=== PATIENT | female | born 1945 | race Caucasian/White ===

== ENCOUNTER 2017-05-28 12:30 | Inpatient (IN) | payer MEDICARE, BC ==
[2017-05-28 12:59] VITALS: BMI 25.4
[2017-06-04] MEDS ORDERED: CEFAZOLIN/Water 2 GM/20 ML SYRINGE ONE (06:18)
[2017-06-04] MEDS ORDERED: Tranexamic Acid 1,000 MG/100 ML BAG ONE ×2 (06:18→09:05)
[2017-06-04] MEDS ORDERED: Midazolam HCl 2 mg/2 ml Vial ONE ×2 (06:25→06:59)
[2017-06-04] MEDS ORDERED: Fentanyl 100 MCG/2 ML VIAL ONE ×2 (06:25→06:59)
[2017-06-04] MEDS ORDERED: Ropivacaine 0.2% HCl/PF 20 ML ONE (06:26)
[2017-06-04] MEDS ORDERED: Lidocaine 1% (PF) 30 ML VIAL ONE (06:26)
[2017-06-04] MEDS ORDERED: Ropivacaine HCl/PF 250 ML in Premix Bag 1 BAG NERVE BLCK SCH (07:20)
[2017-06-04] MEDS ORDERED: Ondansetron HCl/PF 4 MG/2 ML Vial IVP PRN ×3 (07:20→09:00)
[2017-06-04] MEDS ORDERED: Promethazine HCl 25 MG/ML VIAL IM PRN ×3 (07:20→09:00)
[2017-06-04] MEDS ORDERED: Zolpidem Tartrate 5 MG TAB PO PRN ×2 (07:20→08:48)
[2017-06-04] MEDS ORDERED: traMADol HCl 50 MG TAB PO PRN ×3 (07:20→08:48)
[2017-06-04] MEDS ORDERED: HYDROcodone/Acetaminophen 5/325 mg Tablet PO PRN (07:20)
[2017-06-04] MEDS ORDERED: Fentanyl 100 MCG/2 ML VIAL IV PRN (07:21)
[2017-06-04] MEDS ORDERED: Fentanyl 100 MCG/2 ML VIAL SLOW IVP PRN (08:48)
[2017-06-04] MEDS ORDERED: Acetaminophen 325 MG TAB PO PRN (08:48)
[2017-06-04] MEDS ORDERED: diphenhydrAMINE 25 MG CAP PO PRN (08:48)
[2017-06-04] MEDS ORDERED: HYDROcodone/Acetaminophen 10/325 mg Tablet PO PRN ×2 (08:48)
[2017-06-04] MEDS ORDERED: [UNRECOGNIZED DRUG - OTHER] PO SCH (09:00)
[2017-06-04] MEDS ORDERED: TERIPARATIDE SC SCH (09:00)
[2017-06-04] MEDS ORDERED: Tranexamic Acid 1,000 MG in Sodium Chloride 0.9% 100 ML IVPB SCH (09:00)
[2017-06-04] MEDS ORDERED: CEFAZOLIN/Water 2 GM/20 ML SYRINGE SLOW IVP SCH (09:00)
[2017-06-04] MEDS ORDERED: Promethazine HCl 25 MG/ML VIAL SLOW IVP PRN (09:00)
--- NOTE | 2017-06-04 09:04 | OP ---
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 POSTOPERATIVE DIAGNOSES: End-stage tricompartmental osteoarthritis and degenerative genu valgum, rig ht knee. OPERATIVE PROCEDURE: Cemented cruciate-sparing computer-assisted navigated right total knee arthropl geni. SURGEON: Alphonse Torre M.D. HAND BOOKED FOLDER AND STITCHER: Anselmo Ashraf PA-C. ANESTHESIA: General via laryngeal mask airway augmented with indwelling adductor canal block and a s simin shot sciatic block. TOURNIQUET TIME: 51 minutes at 300 mmHg. COMPONENTS USED: [employer] Triathlon size 4, cemented cruciate-sparing femoral component, size 3 cemented primary tibial baseplate, 9 mm polyethylene fixed bearing insert, A29 patellar button . DRAINS: None. SPECIMENS: None. COMPLICATIONS: None. COUNTS: Correct. FINDINGS: End-stage severe degenerative tricompartmental disease, bone on bone arthritis, periarticu lar osteophyte formation, large serous effusion, hypertrophic synovium, and changes consistent with d egenerative genu valgum. INDICATIONS FOR SURGERY: Bonifacio is a 71-year-old white female who has had progressive right knee pain amplified with standing and walking for the last 5-7 years. She has failed conservative management and elected to proceed with total knee arthroplasty to treat her pain. PROCEDURE IN DETAIL: After informed consent was obtained in the preoperative holding area. The susan ent was taken to the operative suite where general anesthesia was induced. Once adequate level of ge neral anesthesia was obtained, the patient was positioned and a well-padded tourniquet was placed smitha und the right proximal thigh. The right lower extremity was then prepped and draped in the usual irma rile fashion. Prior to exsanguination, a time out was called and all members of the surgical team ag jeanie upon site, surgeon, and patient. The extremity was then exsanguinated and the tourniquet was ra ised. A midline longitudinal incision was then made directly over the patella extending two fingerbr eadths above the superior pole of the patella and two fingerbreadths inferior to the inferior patella r pole of the patella. Deeper subcutaneous layers were dissected sharply and local bleeding was cont rolled with Bovie electrocautery. A quad tendon longitudinal split was then made sharply and a media n parapatellar arthrotomy was carried out both sharp and with Bovie electrocautery, carried down to o ne fingerbreadth medial to the tibial tubercle. The knee was then placed into flexion and the patell a was everted nicely, and a copious fat pad ectomy was performed allowing for greater exposure of the tibia. The computer-assisted distal femoral fiducial was then placed and pinned firmly, and the dis wilton femoral cutting guide was pinned firmly into place. The oscillating saw was then used to remove the appropriate amount of bone. The 4-in-1 cutting block was then placed on the distal femur and the oscillating saw was used to remove the appropriate amount of bone off of the anterior, posterior, an d chamfer cuts. After completion of the chamfer cuts, the box-cutting guide was placed, malleted fir mly into place and pinned securely, and an osteotome was used to make the distal cut and the oscillat ing saw was then used to make the medial and lateral box cuts. This came out quite nicely and was re moved with Bovie electrocautery, and the oscillating saw was then used to broaden the lateral medial arita of the box cut. After completion of bone cuts, the anterior cruciate ligament was resected sha rply and the posterior cruciate ligament retractor was placed and the tibia was subluxed for better e xposure. Partial meniscectomies were carried out, and the tibial computer-assisted fiducial was pinn ed, and the cutting guide was placed. Oscillating saw was then used to remove the bone with Hohmann retractors used to take care and protect the collateral ligaments. After the tibial resection was pe rformed, a laminar transcribing operators supervisor was placed in between the freshened bone cuts. The knee placed at 90 deg brandy and further bilateral meniscectomies were carried out, and the curved osteotome and curettage wa s used to remove any excess bone spurs in the posterior compartment. The trial femoral component, ti bial baseplate were placed with the appropriate polyethylene trial insert with an appropriate polyeth ylene spacer and patellar button. The knee was taken through full range of motion with flexion and e xtension from 0-90 degrees and patellar broach squarely in the trochlea without any squinting or sub luxation noted. The knee was also stable to varus and valgus stressing at 0, 15, 45, and 90 degrees of flexion. The drawer was negative. All trial components were then removed and the keel punch was u sed to provide the appropriate defect in the tibia with a mallet. The freshened bone cuts were copio usly irrigated with pulsatile lavage of about 1-1/2 liters to remove all excess debris. The freshene d bone cuts were then dried and with suction and lap sponge. The knee was placed in flexion and retr actors were placed to provide access to all bone cuts. Tobramycin impregnated methyl methacrylate ce ment was then placed on the freshened bone cuts and implants which were malleted firmly into place. Curettage and [place] elevators were used to remove any excess bone cement. The knee was placed into f ull extension and the patellar button was placed under compression, and the cement was allowed to cur e. Once completed, the components were again taken through full range of motion and copious irrigati on of the knee was carried out with another liter of normal saline. All components were inspected fu lly with full range of motion and varus and valgus stressing. There was no laxity noted and full exte nsion was observed clinically. Primary closure was accomplished with #2 interrupted Vicryl stitch of the arthrotomy defect. This was oversewn with a #2 running Quill barbed stitch. The subcutaneous l carlyle was then closed with a running 0 barbed Monocryl stitch and skin closure accomplished with a run almas subcuticular 3-0 Monocryl barbed Quill stitch and augmented with cement on the skin. Tourniquet was lowered. Good spontaneous return of distal pulses was noted clinically and a sterile dressing w as applied to the incision. The procedure was terminated without any complications. The patient was awakened in the operative suite and taken to the recovery room in stable condition.
[2017-06-04] MEDS ORDERED: Ketorolac Tromethamine 30 MG/ML VIAL ONE (09:09)
[2017-06-04] MEDS ORDERED: Bupivacaine 0.5% 10 ML VIAL ONE (09:35)
--- NOTE | 2017-06-04 10:06 | RAD ---
RADIOGRAPH RIGHT KNEE TWO VIEWS: Date: 06-04-2017 History: 71-year-old female with osteoarthritis of the right knee. FINDINGS: Resurfacing changes of the posterior aspect of the patella. Metallic prostheses cover the resurfaced tibial plateau and femoral condyles. Soft tissue gas, fluid in the joint spaces, and soft tissue claudia a, indicate very recent post-operative status. IMPRESSION: Immediately status post total right knee replacement arthroplasty. POS: [facility]
[2017-06-04] MEDS: Aspirin 325 MG TAB PO SCH ×2 (12:08→21:07)
[2017-06-04] MEDS: Ketorolac Tromethamine 30 MG/ML VIAL IVP SCH ×3 (13:52→23:53)
--- NOTE | 2017-06-04 13:53 | PDOC.PN ---
- Subjective Encounter Start Date: 06/04/17 Encounter Start Time: 13:52 Pt seen for management of medical comorbidities, including dyslipidemia. Denies chest pain or shortness of breath. Reports R knee pain. - Objective Vital Signs & Weight: Weight Weight 148 lb Phys Exam - Physical Examination Constitutional: NAD HEENT: moist MMs Neck: supple Respiratory: clear to auscultation bilateral Cardiovascular: RRR Gastrointestinal: soft Musculoskeletal: pulses present s/p R knee surgery Neurological: moves all 4 limbs Psychiatric: normal affect Dx/Plan (1) Dyslipidemia Code(s): E78.5 - HYPERLIPIDEMIA, UNSPECIFIED Status: Chronic (2) Osteoporosis Code(s): M81.0 - AGE-RELATED OSTEOPOROSIS W/O CURRENT PATHOLOGICAL FRACTURE Status: Chronic (3) Glaucoma Code(s): H40.9 - UNSPECIFIED GLAUCOMA Status: Chronic (4) Arthritis Code(s): M19.90 - UNSPECIFIED OSTEOARTHRITIS, UNSPECIFIED SITE Status: Chronic - Plan PT/OT, out of bed/ambulate * . Continue statin. Continue Lumigan eye drops. Continue calcium supplements and osteoporosis medications. PRN IV hydralazine for BP spikes. s/p R knee surgery. DVT prophylaxis and pain management per orthopedic surgery service. Review of Systems - Review of Systems Respiratory: negative: Cough, Dry, Shortness of Breath, Hemoptysis, SOB with Excertion, Pleuritic Pain, Sputum, Wheezing Cardiovascular: negative: chest pain, palpitations, orthopnea, paroxysmal nocturnal dyspnea, edema, light headedness - Medications/Allergies Allergies/Adverse Reactions: Allergies Allergy/AdvReac Type Severity Reaction Status Date / Time No Known Allergies Allergy Verified 05/28/17 12:53 Medications: Current Medications Acetaminophen (Tylenol) 650 mg PO Q4H PRN PRN Reason: SINGLETON/ T > 101F; Mild Pain (1-3) Hydrocodone Bitart/Acetaminophen ([place] 5/325) 1 tab PO Q4H PRN PRN Reason: Mild Pain (1-3) Hydrocodone Bitart/Acetaminophen ([place] 5/325) 2 tab PO Q4H PRN PRN Reason: For Moderate Pain 4-6 Hydrocodone Bitart/Acetaminophen ([place] 10/325) 1 tab PO Q4H PRN PRN Reason: Moderate Pain (4-6) Hydrocodone Bitart/Acetaminophen ([place] 10/325) 2 tab PO Q4H PRN PRN Reason: Severe Pain (7-10) Aspirin (Aspirin) 325 mg PO BID [facility] Last Admin: 06/04/17 12:08 Dose: Not Given Bupropion HCl (Wellbutrin Sr) 150 mg PO QAM [facility] Calcium/Vitamin D (Caltrate 600 + Vit D) 1 tab PO DAILY [facility] Cefazolin Sodium (Ancef) 2 gm SLOW IVP Q8HR [facility] Stop: 06/04/17 22:01 Cholecalciferol (Vitamin D3) 2,000 units PO DAILY [facility] Diphenhydramine HCl (Benadryl) 25 mg PO Q6H PRN PRN Reason: Itching Duloxetine HCl (Cymbalta) 60 mg PO HS [facility] Fentanyl (Sublimaze) 50 mcg IV Q1H PRN PRN Reason: BT PAIN Last Admin: 06/04/17 10:36 Dose: 50 mcg Fentanyl (Sublimaze) 100 mcg SLOW IVP Q1H PRN PRN Reason: Severe Pain (7-10) Ferrous Gluconate (Fergon) 324 mg PO BID [facility] Ropivacaine 250 ml/ Device 250 mls @ 0 mls/hr NERVE BLCK INF [facility] PRN Reason: As Directed Dextrose/Sodium Chloride (D5 1/2 Ns) 1,000 mls @ 100 mls/hr IV .Q10H [facility] Tranexamic Acid 1,000 mg/ (Sodium Chloride) 110 mls @ 200 mls/hr IVPB ONE [facility] Stop: 06/04/17 15:00 Iron/Minerals/Multivitamins (Theragran M) 1 tab PO DAILY [facility] Ketorolac Tromethamine (Toradol) 15 mg IVP Q6HR [facility] Stop: 06/06/17 06:01 Latanoprost (Xalatan 0.005% [facility] Sol) 1 drop EA EYE HS [facility] Ondansetron HCl (Zofran) 4 mg IVP Q6H PRN PRN Reason: Nausea/Vomiting [Biotin] 5 Mg Hm Med 0 each PO DAILY [facility] [Forteo] 600 Mcg) Hm (Med) 0 each SC DAILY [facility] Promethazine HCl (Phenergan) 12.5 mg IM Q4H PRN PRN Reason: Nausea Promethazine HCl (Phenergan) 12.5 mg IM Q4H PRN PRN Reason: Nausea/Vomiting Senna/Docusate Sodium (Senokot S) 2 tab PO BID [facility] Simvastatin (Zocor) 20 mg PO HS [facility] Sodium Chloride (Flush - Normal Saline) 10 ml IVF PRN PRN PRN Reason: Saline Flush Tramadol HCl (Ultram) 100 mg PO Q6H PRN PRN Reason: Mild Pain (1-3) Trazodone HCl (Desyrel) 50 mg PO HS [facility] Zolpidem Tartrate (Ambien) 5 mg PO HSPRN PRN PRN Reason: Insomnia
[2017-06-04] MEDS: HYDROcodone/Acetaminophen 5/325 mg Tablet PO PRN ×3 (13:54→21:47)
[2017-06-04] MEDS ORDERED: hydrALAZINE 20 MG/ML VIAL SLOW IVP PRN (13:57)
[2017-06-04] MEDS: CEFAZOLIN/Water 2 GM/20 ML SYRINGE SLOW IVP SCH ×2 (14:09→21:15)
[2017-06-04] MEDS: Multivitamin W/ Minerals 1 TAB PO SCH (14:10)
[2017-06-04] MEDS: Senokot S 8.6-50 MG TAB PO SCH ×2 (14:10→21:07)
[2017-06-04] MEDS: Ferrous Gluconate 324 MG TAB PO SCH ×2 (14:10→21:07)
[2017-06-04] MEDS: Calcium Carbonate + Vit D 1 TAB PO SCH (14:15)
[2017-06-04] MEDS: Bupropion 150 MG SR TAB PO SCH (14:24)
[2017-06-04] MEDS: Dextrose 5 %-0.45 % NaCl 1,000 ML IV SCH ×2 (16:29→20:00)
[2017-06-04] MEDS ORDERED: Ropivacaine 0.5% HCl/PF (150 MG/30 ML VIAL) ONE (17:02)
[2017-06-04] MEDS ORDERED: Propofol 200 MG/20 ML VIAL ONE (17:06)
[2017-06-04] MEDS ORDERED: Dexamethasone 20 MG/5 ML VIAL ONE (17:06)
[2017-06-04] MEDS ORDERED: Ondansetron HCl/PF 4 MG/2 ML Vial ONE (17:06)
[2017-06-04] MEDS ORDERED: Simvastatin 20 MG TAB PO SCH (21:00)
[2017-06-04] MEDS ORDERED: traZODone HCl 50 MG TAB PO SCH (21:00)
[2017-06-04] MEDS ORDERED: Latanoprost 0.005% Ophth Soln 2.5 ml Bottle EA EYE SCH (21:00)
[2017-06-04] MEDS ORDERED: DULoxetine 60 MG CAP PO SCH (21:00)
[2017-06-04] MEDS ORDERED: Non-Formulary Item 1 EACH (Bimatoprost [Lumigan 0.01% Ophth Soln] 1 DROP) EA EYE SCH (21:00)
[2017-06-05] MEDS: HYDROcodone/Acetaminophen 5/325 mg Tablet PO PRN ×2 (02:07→08:01)
[2017-06-05] MEDS: Dextrose 5 %-0.45 % NaCl 1,000 ML IV SCH ×2 (04:27→15:02)
[2017-06-05 06:02] LABS: Hemoglobin 9.8 g/dL (12.0-16.0); Mean Corpuscular HGB CONC 32.7 g/dL (32.0-36.0); Mean Corpuscular Hemoglobin 32.6 pg (27.0-31.0); Mean Corpuscular Volume 99.6 fl (81.0-99.0); Mean Platelet Volume 6.8 fL (7.4-10.4); Platelet Count 238 thou/uL (130-400); RBC Distribution Width 11.4 % (11.5-14.5); Red Blood Cell (RBC) Count 3.01 mill/uL (4.20-5.40); White Blood Cell (WBC) Count 10.5 thou/uL (4.8-10.8)
[2017-06-05] MEDS: Ketorolac Tromethamine 30 MG/ML VIAL IVP SCH ×3 (06:14→12:26)
[2017-06-05] MEDS ORDERED: Ropivacaine 0.2% 550 ML 550 ML NERVE BLCK SCH (09:36)
[2017-06-05] MEDS: Ferrous Gluconate 324 MG TAB PO SCH (09:37)
[2017-06-05] MEDS: Calcium Carbonate + Vit D 1 TAB PO SCH (09:38)
[2017-06-05] MEDS: Bupropion 150 MG SR TAB PO SCH (09:38)
[2017-06-05] MEDS: Multivitamin W/ Minerals 1 TAB PO SCH (09:38)
[2017-06-05] MEDS: Aspirin 325 MG TAB PO SCH (09:38)
[2017-06-05] MEDS: Senokot S 8.6-50 MG TAB PO SCH (09:39)
[2017-06-05 12:24] VITALS: BP 156/83; TEMP 98.2
--- NOTE | 2017-06-06 11:42 | DIS ---
DATE OF ADMISSION: 06/04/2017 DATE OF DISCHARGE: 06/05/2017 PREOPERATIVE DIAGNOSES: End-stage tricompartmental osteoarthritis, degenerative genu valgum genu ivania gum, right knee. DISCHARGE DIAGNOSES: End-stage tricompartmental osteoarthritis, degenerative genu valgum genu valgum , right knee. PROCEDURE: The patient underwent a cemented cruciate sparing computer-assisted navigated right total knee arthroplasty. HOSPITAL COURSE: Hospital stay was unremarkable. She was admitted to [facility] ere she worked with staff, physical therapy, occupational therapy, and progressed quite well. By pos toperative day 1, she was ready to discharge home. DISCHARGE CONDITION: Good/stable. DISPOSITION: Home with home health. FOLLOWUP: Followup would be in 3-4 weeks, sooner if there are problems or concerns. DISCHARGE MEDICATIONS: Given with usage instructions. Bassam Dover PA-C dictating for Dr. Alphonse Torre.
== END 2017-06-05 15:21 | disposition home health service (06) | DRG 470 ==
LOC: SURG A 06-04 05:45 → SJJU 06-04 10:21
PROVIDERS: ADMIT Orthopaedic Surgery; ATTEND Orthopaedic Surgery
PROC: 0SRC0J9 Replacement of Right Knee Joint with Synthetic Substitute, Cemented, Open Approach (ICD-10-PCS; principal; 2017-06-04)
PROC: 8E0YXBZ Computer Assisted Procedure of Lower Extremity (ICD-10-PCS; 2017-06-04)
PROC: 3E0T3BZ Introduction of Anesthetic Agent into Peripheral Nerves and Plexi, Percutaneous Approach (ICD-10-PCS; 2017-06-04)
PROC: 3E0T3BZ Introduction of Anesthetic Agent into Peripheral Nerves and Plexi, Percutaneous Approach (ICD-10-PCS; 2017-06-04)
DX: M17.11 Unilateral primary osteoarthritis, right knee (principal); E78.00 Pure hypercholesterolemia, unspecified; M21.061 Valgus deformity, not elsewhere classified, right knee; F34.1 Dysthymic disorder; M81.0 Age-related osteoporosis without current pathological fracture; H40.9 Unspecified glaucoma
CPT/HCPCS: 36415; 85027; 96374; A4306; C1713; C1776; G8978-GP-CM; G8979-GP-CJ; J0131; J1100; J1885; J2001; J2250; J2405; J2704; J2795; J3010; J3370; J3490

== ENCOUNTER 2017-05-28 12:45 | Outpatient (CLI) | payer MEDICARE, BC ==
--- NOTE | 2017-05-28 13:38 | RAD ---
PA AND LATERAL VIEWS OF CHEST: Date: 05/28/17 HISTORY: Preoperative evaluation. FINDINGS: The heart size is normal. The lungs are well expanded without focal areas of consolidation, pneumotho rax, or pleural effusions. No acute osseous abnormalities are noted. IMPRESSION: No radiographic evidence of acute cardiopulmonary process. POS: [facility]
[2017-05-28 13:45] LABS: #Basophils 0.1 thou/uL (0.0-0.2); #Eosinphils 0.1 thou/uL (0.0-0.7); #Lymphocytes 0.9 thou/uL (1.20-3.40); #Monocytes 0.6 thou/uL (0.11-0.59); #Neutrophils 5.2 thou/uL (1.40-6.50); %Eosinophils 0.7 % (0.0-10.0); %Monocytes 9.3 % (0.0-10.0); Hematocrit 37.1 % (36.0-47.0); Mean Platelet Volume 7.1 fL (7.4-10.4); Red Blood Cell (RBC) Count 3.72 mill/uL (4.20-5.40); White Blood Cell (WBC) Count 6.8 thou/uL (4.8-10.8)
[2017-05-28 13:46] LABS: Bilirubin Negative (Negative); Blood, Urine Moderate (Negative); Glucose, Urine (Dipstick) Negative (Negative); Ketone, Urine Trace mg/dL (Negative); Nitrite Negative (Negative); Protein, Urine (Dipstick) Negative (Neg-Trace)
[2017-05-28 13:48] LABS: Bacteria/HPF None Seen HPF (None Seen); Hyaline Casts/LPF 0-3 HYALINE CAST LPF (0-3 Hyaline); RBC/HPF 21-50 HPF (0-3); Squamous Epithelial None Seen HPF (0-3); WBC/HPF None Seen HPF (0-3)
[2017-05-28 13:52] LABS: PTT 28.8 SEC (22.9-36.1); Prothrombin Time 13.3 SEC (12.0-14.7)
[2017-05-28 14:15] LABS: Anion Gap 14 mmol/L (10-20); BUN (Urea Nitrogen) 13 mg/dL (9.8-20.1); Calc. Creatinine Clearance 0 mL/min (70-130); Calcium 9.9 mg/dL (7.8-10.44); Carbon Dioxide 29 mmol/L (23-31); Chloride 99 mmol/L (98-107); Estimated GFR-MDRD 67
--- NOTE | 2017-05-28 18:02 | EKG ---
Test Reason : Blood Pressure : / mmHG Vent. Rate : 093 BPM Atrial Rate : 093 BPM P-R Int : 156 ms QRS Dur : 076 ms QT Int : 372 ms P-R-T Axes : 074 045 058 degrees QTc Int : 462 ms Normal sinus rhythm Normal ECG When compared with ECG of 06-MAR-2016 12:30, No significant change was found Confirmed by DR. Johana MOORE ([id number]) on 05/28/2017 6:02:20 PM Referred By: DAVIS Confirmed By:DR. Johana MOORE
== END 2017-05-28 12:46 | disposition home or self-care (01) ==
LOC: LABBT 12:45
PROVIDERS: ATTEND Orthopaedic Surgery
DX: Z01.818 Encounter for other preprocedural examination (principal); M17.11 Unilateral primary osteoarthritis, right knee
CPT/HCPCS: 71020; 80048; 81001; 85025; 85610; 85730; 86850; 86900; 86901; 87081; 93005; 93010

== ENCOUNTER 2017-08-19 13:53 | Outpatient (CLI) | payer MEDICARE, BC | END 2017-08-19 13:54 | disposition home or self-care (01) | LOC: BICMAMMO 13:53 | PROVIDERS: ATTEND Internal Medicine | DX: Z12.31 Encounter for screening mammogram for malignant neoplasm of breast (principal) | CPT/HCPCS: 77063; 77067 ==

== ENCOUNTER 2017-10-17 14:03 | Outpatient (CLI) | payer MEDICARE, BC ==
--- NOTE | 2017-10-17 15:57 | MRI ---
MR OF THE RIGHT SHOULDER WITHOUT CONTRAST: 10/17/17 INDICATION: Right rotator cuff injury one year ago after fall. FINDINGS: There is a near full thickness bursal surface tear involving the mid supraspinatus at the footprint m easuring 1.1 x 1.3 cm. This involves approximately 90% of the tendon thickness. There is prominent te ndinosis of the anterior infraspinatus. There is a type II SLAP tear present. There is no evidence of extension into the biceps anchor or proximal biceps tendon. There is mild biceps tendinosis. The bic eps tendon is located within the groove. Inferior glenohumeral labral ligamentous complex appears int act. There is mild glenohumeral chondrosis. There is mild AC joint osteoarthrosis. There is mild musc ular atrophy of the supraspinatus. IMPRESSION: 1. High grade bursal surface tear of the mid supraspinatus that involves 90% of tendon thickness . 2. Moderate tendinosis of the infraspinatus. 3. Type II SLAP tear. 4. Mild AC joint osteoarthrosis. POS: [facility]
== END 2017-10-17 14:04 | disposition home or self-care (01) ==
LOC: SCSMRI 14:03
PROVIDERS: ATTEND Orthopaedic Surgery
DX: M75.101 Unspecified rotator cuff tear or rupture of right shoulder, not specified as traumatic (principal); M19.011 Primary osteoarthritis, right shoulder

== ENCOUNTER 2018-08-21 00:13 | Outpatient (CLI) | payer MEDICARE, BC ==
--- NOTE | 2018-08-22 16:40 | EKG ---
Test Reason : Blood Pressure : / mmHG Vent. Rate : 073 BPM Atrial Rate : 073 BPM P-R Int : 176 ms QRS Dur : 084 ms QT Int : 400 ms P-R-T Axes : 076 072 072 degrees QTc Int : 440 ms Normal sinus rhythm Possible Left atrial enlargement Cannot rule out Anterior infarct , age undetermined Abnormal ECG When compared with ECG of 28-MAY-2017 13:20, No significant change was found Confirmed by DR. Jose DO ([id number]) on 08/22/2018 4:39:51 PM Referred By: DAVIS Confirmed By:DR. Jose DO
== END 2018-08-21 00:14 | disposition home or self-care (01) ==
LOC: LABBT 00:13
PROVIDERS: ATTEND Orthopaedic Surgery
DX: Z01.818 Encounter for other preprocedural examination (principal); M17.12 Unilateral primary osteoarthritis, left knee
CPT/HCPCS: 87081; 93005; 93010

== ENCOUNTER 2018-08-27 17:04 | Outpatient (CLI) | payer MEDICARE, BC ==
[2018-08-27 17:39] LABS: #Basophils 0.1 thou/uL (0.0-0.2); #Eosinphils 0.2 thou/uL (0.0-0.7); #Lymphocytes 2.4 thou/uL (1.20-3.40); #Monocytes 0.5 thou/uL (0.11-0.59); #Neutrophils 4.9 thou/uL (1.40-6.50); %Basophils 0.7 % (0.0-1.0); %Lymphocytes 29.5 % (21.0-51.0); %Monocytes 6.6 % (0.0-10.0); %Neutrophils 60.3 % (42.0-75.0); Hemoglobin 12.1 g/dL (12.0-16.0); Mean Corpuscular HGB CONC 33.5 g/dL (32.0-36.0); Mean Corpuscular Hemoglobin 33.2 pg (27.0-31.0); Mean Platelet Volume 7.4 fL (7.4-10.4); Platelet Count 242 thou/uL (130-400); RBC Distribution Width 11.9 % (11.5-14.5); Red Blood Cell (RBC) Count 3.64 mill/uL (4.20-5.40); White Blood Cell (WBC) Count 8.1 thou/uL (4.8-10.8)
[2018-08-27 17:41] LABS: INR-International Normal Ratio 0.9; Prothrombin Time 12.5 SEC (12.0-14.7)
[2018-08-27 17:59] LABS: Anion Gap 14 mmol/L (10-20); BUN (Urea Nitrogen) 20 mg/dL (9.8-20.1); Calc. Creatinine Clearance 0 mL/min (70-130); Calcium 9.4 mg/dL (7.8-10.44); Carbon Dioxide 24 mmol/L (23-31); Chloride 106 mmol/L (98-107); Estimated GFR-MDRD 72; Glucose 85 mg/dL (83-110); Sodium 140 mmol/L (136-145)
== END 2018-08-27 17:05 | disposition home or self-care (01) ==
LOC: LABBT 17:04
PROVIDERS: ATTEND Orthopaedic Surgery
DX: Z01.812 Encounter for preprocedural laboratory examination (principal); M17.12 Unilateral primary osteoarthritis, left knee
CPT/HCPCS: 80048; 85025; 85610; 86850; 86900; 86901

== ENCOUNTER 2018-09-02 05:36 | Day surgery (SDC) | payer MEDICARE, BC ==
[2018-08-21 09:23] VITALS: BMI 25.7
[2018-09-02] MEDS ORDERED: Sodium Chloride 0.9% 100 ML ONE (05:58)
[2018-09-02] MEDS ORDERED: Tranexamic Acid 1,000 MG/10 ML VIAL ONE (05:58)
[2018-09-02] MEDS ORDERED: Lidocaine 1% (PF) 30 ML VIAL ONE (06:31)
[2018-09-02] MEDS ORDERED: Midazolam HCl 2 mg/2 ml Vial ONE (06:31)
[2018-09-02] MEDS ORDERED: Fentanyl 100 MCG/2 ML VIAL ONE ×3 (06:31→09:59)
[2018-09-02] MEDS ORDERED: Promethazine HCl 25 MG/ML VIAL IM PRN ×2 (07:06→07:59)
[2018-09-02] MEDS ORDERED: HYDROcodone/Acetaminophen 10/325 mg Tablet PO PRN ×3 (07:06→10:06)
[2018-09-02] MEDS ORDERED: traMADol HCl 50 MG TAB PO PRN ×2 (07:06→10:07)
[2018-09-02] MEDS ORDERED: Ondansetron PF 4 MG/2 ML Vial IVP PRN ×2 (07:06→07:59)
[2018-09-02] MEDS ORDERED: Zolpidem Tartrate 5 MG TAB PO PRN ×2 (07:06→07:59)
[2018-09-02] MEDS ORDERED: diphenhydrAMINE 25 MG CAP PO PRN (07:06)
[2018-09-02] MEDS ORDERED: Fentanyl 100 MCG/2 ML VIAL SLOW IVP PRN ×2 (07:06)
[2018-09-02] MEDS ORDERED: Acetaminophen 325 MG TAB PO PRN (07:06)
[2018-09-02] MEDS ORDERED: ALPRAZolam 0.5 MG TAB PO PRN (07:08)
[2018-09-02] MEDS ORDERED: Ropivacaine HCl/PF 250 ML in Premix Bag 1 BAG NERVE BLCK SCH (07:59)
[2018-09-02] MEDS ORDERED: Fentanyl 100 MCG/2 ML VIAL IV PRN (08:00)
--- NOTE | 2018-09-02 10:28 | RAD ---
PORTABLE LEFT KNEE 2 VIEWS: HISTORY: Total knee arthroplasty. FINDINGS/IMPRESSION: There are recent postop changes of total knee arthroplasty in good position and alignment. Soft tiss ue air is present. POS: [facility]
[2018-09-02] MEDS: traMADol HCl 50 MG TAB PO PRN ×2 (12:58→21:31)
[2018-09-02] MEDS ORDERED: Ropivacaine 0.5% HCl/PF (150 MG/30 ML VIAL) ONE (13:08)
[2018-09-02] MEDS ORDERED: Ropivacaine 0.2% HCl/PF (40 MG/20 ML VIAL) ONE (13:08)
[2018-09-02] MEDS ORDERED: Ketorolac Tromethamine 30 MG/ML VIAL ONE (13:15)
[2018-09-02] MEDS ORDERED: PROPOFOL 200 MG/20 ML VIAL ONE (13:15)
--- NOTE | 2018-09-02 13:50 | OP ---
DATE OF PROCEDURE: 09/02/2018 PREOPERATIVE DIAGNOSIS: Degenerative joint disease, left knee. POSTOPERATIVE DIAGNOSIS: Degenerative joint disease, left knee. LEAD APPLIER: Kimmie Liz PA-C ESTIMATED BLOOD LOSS: Minimal. SPECIMENS: None. DRAINS: None. COMPLICATIONS: None. TOURNIQUET TIME: 51 minutes. IMPLANTS USED: [employer] triathlon 4 femur, 3 tibia, 9 mm CS X3 polyethylene, and A29 patella. PROCEDURE IN DETAIL: After informed consent was obtained in the preoperative holding area, the patient was taken to the operative suite where general anesthesia was induced. Once adequate level of general anesthesia was obtained, the patient was positioned and a well-padded tourniquet was placed around the left proximal thigh. The left lower extremity was then prepped and draped in the usual sterile fashion. Prior to exsanguination, a time-out was called and all members of the surgical team agreed upon site, surgeon, and patient. The extremity was then exsanguinated and the tourniquet was raised. A midline longitudinal incision was then made directly over the patella extending 2 fingerbreadths above the superior pole of the patella and 2 fingerbreadths inferior to the inferior patellar pole of the patella. Deeper subcutaneous layers were dissected sharply and local bleeding was controlled with Bovie electrocautery. A quad tendon longitudinal split was then made sharply and a median parapatellar arthrotomy was carried out both sharp and with Bovie electrocautery, carried down to 1 fingerbreadth medial to the tibial tubercle. The knee was then placed into flexion and the patella was everted nicely, and a copious fat pad ectomy was performed allowing for greater exposure of the tibia. The computer-assisted distal femoral fiducial was then placed and pinned firmly, and the distal femoral cutting guide was pinned firmly into place. The oscillating saw was then used to remove the appropriate amount of bone. The 4-in-1 cutting block was then placed on the distal femur and the oscillating saw was used to remove the appropriate amount of bone off the anterior, posterior, and chamfer cuts. After completion of bone cuts, the anterior cruciate ligament was resected sharply and the posterior cruciate ligament retractor was placed and the tibia was subluxed for better exposure. Partial meniscectomies were carried out, and the tibial computer-assisted fiducial was pinned, and the cutting guide was placed. Oscillating saw was then used to remove the bone, with Hohmann retractors used to take care and protect the collateral ligaments. After the tibial resection was performed, a laminar associate art director was placed in between the freshened bone cuts. The knee placed at 90 degrees and further bilateral meniscectomies were carried out, and the curved osteotome and curettage were used to remove any excess bone spurs in the posterior compartment. The trial femoral component, tibial baseplate were placed with the appropriate polyethylene trial insert with an appropriate polyethylene spacer and patellar button. The knee was taken through full range of motion with flexion and extension from 0 to 90 degrees and patellar broach squarely in the trochlea without any squinting or subluxation noted. The knee was also stable to varus and valgus stressing at 0, 15, 45, and 90 degrees of flexion. The drawer was negative. All trial components were then removed and the keel punch was used to provide the appropriate defect in the tibia with a mallet. The freshened bone cuts were copiously irrigated with pulsatile lavage of about 1.5 L to remove all excess debris. The freshened bone cuts were then dried with suction and lap sponge. The knee was placed in flexion and retractors were placed to provide access to all bone cuts. Tobramycin-impregnated methyl methacrylate cement was then placed on the freshened bone cuts and implants which were malleted firmly into place. Curettage and [place] elevators were used to remove any excess bone cement. The knee was placed into full extension and the patellar button was placed under compression, and the cement was allowed to cure. Once completed, the components were again taken through full range of motion and copious irrigation of the knee was carried out with another liter of normal saline. All components were inspected fully with full range of motion and varus and valgus stressing. There was no laxity noted and full extension was observed clinically. Primary closure was accomplished with #2 interrupted Vicryl stitch of the arthrotomy defect. This was oversewn with a #2 running Quill barbed stitch. The gravitational platelet system was then injected into the arthrotomy prior to closure. The subcutaneous layer was then closed with a running 0 barbed Monocryl stitch and skin closure accomplished with a running subcuticular 3-0 Monocryl barbed Quill stitch and augmented with cement on the skin. Tourniquet was lowered. Good spontaneous return of distal pulses was noted clinically and a sterile dressing was applied to the incision. The procedure was terminated without any complications. The patient was awakened in the operative suite and the patient was taken to the recovery room in stable condition. Job ID: [id number]
[2018-09-02] MEDS: CEFAZOLIN 2 GM in Premix Bag 1 BAG IVPB SCH ×2 (15:58→22:40)
--- NOTE | 2018-09-02 19:09 | CON ---
DATE OF CONSULTATION: 09/02/2018 CHIEF COMPLAINT: Postoperative left knee. HISTORY OF PRESENT ILLNESS: This patient is a 73-year-old female with a history of degenerative joint disease, who presented for a total knee replacement on the left. The patient is postoperative and doing remarkably well. She has no major complaints at this point. Her toes are starting to tingle as if the block was starting to resolve. The patient's other chronic medical problems have been very well controlled. REVIEW OF SYSTEMS: She has had normal sleep, appetite, bowel and bladder habits. PAST MEDICAL HISTORY: 1. Hyperlipidemia. 2. Osteoporosis. 3. Osteoarthritis. 4. Dysthymia. SURGICAL HISTORY: 1. Breast biopsy. 2. Right lateral meniscus. 3. Right total knee replacement in 2018. FAMILY HISTORY: Not significantly known. SOCIAL HISTORY: The patient is a nonsmoker, nondrug user. She has 1-2 drinks per day. MEDICATIONS: 1. Trazodone. 2. Simvastatin. 3. Cymbalta. 4. Forteo. 5. Bupropion. 6. She also is taking calcium and Biotin. ALLERGIES: NONE. PHYSICAL EXAMINATION: GENERAL APPEARANCE: Age-appropriate female, in no distress. She appears younger than her stated age. HEENT: PERRL. No OP lesions. HEART: Regular with a 2/6 murmur that is subtle. LUNGS: Clear to auscultation bilaterally. Good chest wall expansion and air exchange. ABDOMEN: Soft, nontender, and nondistended. Positive bowel sounds. No masses. No organomegaly. EXTREMITIES: Warm and dry with no edema. Left lower extremity is in postoperative surgical dressing and is elevated on a pillow. She has good peripheral pulses and lower extremities are warm and dry. IMPRESSION AND PLAN: 1. Postoperative, left knee arthroplasty. The patient is doing well postoperatively. Continue with the postoperative care per Ortho. 2. Hyperlipidemia. Back on her usual statin. Stable. 3. History of dysthymic disorder. Continue with the Cymbalta. DISPOSITION: The patient is doing quite well. Anticipate she will likely discharge tomorrow. The hospitalist team will certainly be available for any needs the patient have in the interim. Thank you for this consult. Job ID: [id number]
[2018-09-02] MEDS: Sodium Chloride 0.9% 1,000 ML IV SCH (20:10)
[2018-09-02] MEDS: Ferrous Gluconate 324 MG TAB PO SCH ×2 (20:11→22:40)
[2018-09-02] MEDS: Senokot S 8.6-50 MG TAB PO SCH ×2 (20:11→21:33)
[2018-09-02] MEDS: Multivitamin W/ Minerals 1 TAB PO SCH (20:11)
[2018-09-02] MEDS: Bupropion 150 MG XL TAB PO SCH (20:11)
[2018-09-02] MEDS: Calcium Carbonate + Vit D 1 TAB PO SCH (20:11)
[2018-09-02] MEDS: Aspirin 81 mg Enteric Coated Tablet PO SCH ×2 (20:11→21:33)
[2018-09-02] MEDS ORDERED: Latanoprost 0.005% Ophth Soln 2.5 ml Bottle EA EYE SCH (21:00)
[2018-09-02] MEDS ORDERED: Atorvastatin Calcium 10 MG TAB PO SCH (21:00)
[2018-09-02] MEDS ORDERED: traZODone HCl 50 MG TAB PO SCH (21:00)
[2018-09-02] MEDS ORDERED: DULoxetine 60 MG CAP PO SCH (21:00)
[2018-09-03] MEDS: Ketorolac Tromethamine 30 MG/ML VIAL IVP PRN ×2 (02:29→14:08)
[2018-09-03] MEDS: Sodium Chloride 0.9% 1,000 ML IV SCH ×2 (03:22→08:29)
[2018-09-03] MEDS: traMADol HCl 50 MG TAB PO PRN ×3 (03:42→15:38)
[2018-09-03 04:54] LABS: Hemoglobin 8.9 g/dL (12.0-16.0); Mean Corpuscular HGB CONC 34.1 g/dL (32.0-36.0); Mean Corpuscular Hemoglobin 33.4 pg (27.0-31.0); Mean Corpuscular Volume 98.1 fL (78.0-98.0); Mean Platelet Volume 7.5 fL (7.4-10.4); Platelet Count 190 thou/uL (130-400); RBC Distribution Width 11.7 % (11.5-14.5); Red Blood Cell (RBC) Count 2.66 mill/uL (4.20-5.40); White Blood Cell (WBC) Count 11.8 thou/uL (4.8-10.8)
[2018-09-03] MEDS: HYDROcodone/Acetaminophen 10/325 mg Tablet PO PRN ×3 (06:20→15:04)
[2018-09-03] MEDS: Ferrous Gluconate 324 MG TAB PO SCH (08:26)
[2018-09-03] MEDS: Calcium Carbonate + Vit D 1 TAB PO SCH (08:26)
[2018-09-03] MEDS: Multivitamin W/ Minerals 1 TAB PO SCH (08:26)
[2018-09-03] MEDS: Aspirin 81 mg Enteric Coated Tablet PO SCH (08:27)
[2018-09-03] MEDS: Senokot S 8.6-50 MG TAB PO SCH (08:27)
[2018-09-03] MEDS: Bupropion 150 MG XL TAB PO SCH (08:27)
[2018-09-03] MEDS ORDERED: Biotin [Biotin] 5 MG PO SCH (09:00)
--- NOTE | 2018-09-03 12:13 | PRG ---
DATE OF SERVICE: 09/03/2018 SUBJECTIVE: Bonifacio is a 73-year-old female, postop day 1 from left total knee arthroplasty. Her overnight was uneventful and she has no complaints currently and she appears to be comfortable. On her prior admission for arthroplasty, she was discharged postop day 1 and requests about doing this today as long as her pain is controlled. OBJECTIVE: VITAL SIGNS: Temperature 93, pulse 88, respiratory rate 16 and nonlabored, blood pressure is 123/75. NEUROLOGIC: She is alert, oriented to person, place, time, and situation, grossly nonfocal, conversive and appropriate. Her incision is clean, closed without any erythema. No strikethrough noted. She is neurovascularly intact in the involved extremity. LABORATORY DATA: Hemoglobin and hematocrit are 8.9 and 26.1 (similar trend noted on prior arthroplasty). IMPRESSION: A 73-year-old female, postop day 1 left total knee arthroplasty, doing well. PLAN: Consider home discharge today as long as the pain is adequately controlled with oral medications. I will re-evaluate this afternoon to decide. Job ID: [id number]
[2018-09-03 15:20] VITALS: BP 131/76; TEMP 98.3
== END 2018-09-03 15:50 | disposition home or self-care (01) ==
LOC: SDC 05:36 → SJJU 07:07 → SDC 09-03 15:50
PROVIDERS: ATTEND Orthopaedic Surgery
PROC: 0SRD0J9 Replacement of Left Knee Joint with Synthetic Substitute, Cemented, Open Approach (ICD-10-PCS; principal; 2018-09-02)
PROC: 8E0YXBZ Computer Assisted Procedure of Lower Extremity (ICD-10-PCS; 2018-09-02)
DX: M17.12 Unilateral primary osteoarthritis, left knee (principal); E78.00 Pure hypercholesterolemia, unspecified; M81.0 Age-related osteoporosis without current pathological fracture; F34.1 Dysthymic disorder; E78.5 Hyperlipidemia, unspecified; Z79.899 Other long term (current) drug therapy; Z96.651 Presence of right artificial knee joint; Z98.890 Other specified postprocedural states
CPT/HCPCS: 20985; 27447; 73560; 85027; 97110; 97116 ×2; 97139; 97150; 98962; C1713; C1776; 36415; J1885; J2001; J2250; J2704; J2795; J3010; J3370; J7050

== ENCOUNTER 2019-04-02 07:51 | Outpatient (CLI) | payer MEDICARE, BC ==
--- NOTE | 2019-04-02 09:18 | ULT ---
GALLBLADDER ULTRASOUND: Date: 04/02/19 INDICATION: Right upper quadrant pain. FINDINGS: Gallbladder has a normal sonographic appearance. No evidence of gallstone. The common bile duct is no rmal caliber at 2-3 mm. Liver appears unremarkable. The visualized pancreas is unremarkable. The right kidney is imaged and a ppears unremarkable. IMPRESSION: Unremarkable gallbladder ultrasound. POS: [facility]
--- NOTE | 2019-04-02 12:23 | CT ---
CT ABDOMEN AND PELVIS WITH AND WITHOUT IV CONTRAST: HISTORY: Abdominal pain. Bloating and swelling. COMPARISON: 04/15/2009 FINDINGS: The lung bases are clear. Fat protruding through the posteromedial aspect of the left hemidiaphragm, consistent with a Bochdalek hernia, has enlarged slightly and is of doubtful clinical significance. C alcified granulomata of the solid organs of the abdomen are consistent with healed granulomatous dise ase. Each renal collecting system, ureter and urinary bladder are decompressed without stone evident. Tiny right renal cyst is stable. Small hiatal hernia. No free air or free fluid. No evidence of monique l obstruction. Large amount of stool throughout the colon. Appendix is not inflamed. Degenerative changes of the lumbar spine, including significant central canal stenosis at the L4-L5 l evel. IMPRESSION: 1. Constipation. No acute inflammatory abnormalities or aggressive lesions are evident. 2. Small hiatal hernia. POS: [facility]
== END 2019-04-02 07:52 | disposition home or self-care (01) ==
LOC: ULT 07:51
PROVIDERS: ATTEND Internal Medicine
DX: R10.11 Right upper quadrant pain (principal); R10.84 Generalized abdominal pain; R19.00 Intra-abdominal and pelvic swelling, mass and lump, unspecified site; K59.00 Constipation, unspecified; K44.9 Diaphragmatic hernia without obstruction or gangrene
CPT/HCPCS: 74178; 76705